=== PATIENT | male | born 1995 | race Asian ===

== ENCOUNTER 2018-01-15 14:19 | Emergency (ER) | payer OTHER ==
[2018-01-15] MEDS ORDERED: Dexamethasone 4 mg/ml Vial ONE (15:59)
== END 2018-01-15 16:05 | disposition home or self-care (01) ==
LOC: ERS 14:19
DX: L30.9 Dermatitis, unspecified (principal)
CPT/HCPCS: 99282; J1100

== ENCOUNTER 2022-06-15 21:48 | Emergency (ER) | payer OTHER ==
[2022-06-15] MEDS ORDERED: Lidocaine 1% PF 5 ML VIAL ONE (21:59)
[2022-06-15] MEDS ORDERED: Boostrix 0.5 ML (Tdap) VIAL ONE (23:10)
== END 2022-06-15 23:12 | disposition home or self-care (01) ==
LOC: ERS 21:48
DX: S61.215A Laceration without foreign body of left ring finger without damage to nail, initial encounter (principal); W26.0XXA Contact with knife, initial encounter; Z23 Encounter for immunization
CPT/HCPCS: 90715

== ENCOUNTER 2022-06-27 12:19 | Emergency (ER) | payer OTHER | END 2022-06-27 12:59 | disposition home or self-care (01) | LOC: ERS 12:19 | DX: S61.214D Laceration without foreign body of right ring finger without damage to nail, subsequent encounter (principal); T81.41XA Infection following a procedure, superficial incisional surgical site, initial encounter | CPT/HCPCS: 99282 ==

== ENCOUNTER 2022-07-02 16:14 | Emergency (ER) | payer OTHER | END 2022-07-02 17:28 | disposition home or self-care (01) | LOC: ERS 16:14 | DX: S61.215D Laceration without foreign body of left ring finger without damage to nail, subsequent encounter (principal); W26.0XXD Contact with knife, subsequent encounter ==